=== PATIENT | female | born 1970 | race Caucasian/White ===

== ENCOUNTER 2024-11-25 14:07 | Outpatient (AMB) | payer MEDICARE, MEDICAID, SELFPAY ==
--- NOTE | 2024-11-25 13:11 | A.OFFVIS_ITS ---
Vital Signs 11/25/24 14:27 Height 5 ft 6 in Weight 182 lb BMI 29.4 BP 122/64 Blood Pressure Location Rt brachial Pulse 93 Pulse Source Pulse Oximeter Pulse Oximetry (%) 98 Oxygen Delivery Method Room Air Intake Visit Reasons: Cough Record Center Coordinator Required: No Ceramist: Ceramist offered & declined Accompanied by: Self / Same As Patient Allergies acetaminophen (From Percocet) Allergy (Unknown, Verified 11/25/24 14:38) rash clarithromycin (From Biaxin) Allergy (Unknown, Verified 11/25/24 14:38) rash Iodinated Contrast Media (IV Contrast Dye) Allergy (Unknown, Verified 11/25/24 14:38) itching, rash oxycodone (From Percocet) Allergy (Unknown, Verified 11/25/24 14:38) rash Sulfa (Sulfonamide Antibiotics) Allergy (Unknown, Verified 11/25/24 14:38) Rash latex Allergy (Verified 11/25/24 14:38) itching/rash Medication List - Last Reconciled 11/25/24 by Linda Villalta LPN acyclovir 800 mg PO DAILY PRN albuterol sulfate 90 mcg/actuation (Ventolin HFA) 1 puff inhalation Q6H PRN amlodipine 5 mg PO DAILY bupropion HCl XL (Wellbutrin XL) 300 mg PO QAM cetirizine (Zyrtec) 10 mg PO DAILY PRN fluticasone propionate 50 mcg/actuation (Flonase Allergy Relief) 2 sprays intranasal DAILY hydrochlorothiazide 12.5 mg PO DAILY levothyroxine (Synthroid) 150 mcg PO DAILY methylphenidate HCl (Ritalin) 10 mg PO TID mometasone-formoterol 100-5 mcg/actuation (Dulera) 2 puffs inhalation BID trazodone 150 mg PO BEDTIME PRN HPI HPI Cough: Details: Haritha is a pleasant 54 year old female, never smoker, with underlying asthma, anemia, allergic rhinitis, chronic urticaria GERD and HTN. She was referred by PCP for pulmonary evaluation. The patient has a history of asthma, since childhood, never requiring intubation, previously managed with Symbicort, now switched to Dulera since September due to insurance coverage changes. She reports using Dulera twice daily but experiences nocturnal dyspnea approximately three times a week, indicating suboptimal asthma control, requiring albuterol MDI frequently. In September, the patient experienced sinusitis, which exacerbated her chronic bronchitis and asthma. She was treated with two courses of antibiotics due to initial treatment failure, but did not receive prednisone. The patient reports long-standing history of chronic bronchitis, with recurrent episodes noted during winter and spring. She reports exacerbations in May/June, and again in September/October, often triggered by seasonal changes and allergies. CXR 10/2024 unremarkable The patient also has chronic urticaria, requiring apheresis treatments in the past, though not in the last two and a half years. Previously on Xolair however d/c due to scheduling conflicts. She has a family history of respiratory issues, including her daughter with mitochondrial disease and granddaughters with similar conditions. She denies any occupational exposures. [facility] Social History (Updated 11/25/24 @ 14:29 by Linda Villalta LPN) Patient Tobacco Use Status: Never used Tobacco Review of Systems Const Denies chills, Denies excessive sweating, Denies fever(s), Denies headache(s) and Denies night sweats ENT Reports Normal hearing present, Denies headache(s), Denies nasal discharge and Denies sore throat Card Denies chest pain, Denies chest pain at rest, Denies chest pain with activity, Denies claudication, Denies leg edema, Reports dyspnea on exertion, Denies orthopnea and Denies paroxysmal nocturnal dyspnea Resp Denies change in phlegm color, Denies chest congestion, Reports cough, Denies hemoptysis, Denies excessive phlegm production, Denies pain on inspiration, Denies pain with cough, Reports dyspnea on exertion and Denies stridor Musc Denies myalgias Neuro Reports Normal hearing present and Denies headache(s) Endo Denies excessive sweating Jose/Lymph Denies lymphadenopathy Aller/Immun Denies seasonal rhinorrhea Physical Exam Vital Signs: Last Vital Signs Pulse 93 11/25/24 14:27 BP 122/64 11/25/24 14:27 Pulse Ox 98 11/25/24 14:27 Oxygen Delivery Method Room Air 11/25/24 14:27 BMI result Body Mass Index 29.4 Const General: cooperative, healthy appearing, comfortable, no acute distress, well developed and alert Orientation/consciousness: patient oriented x3 Limitations: no limitations HEENT Head: Yes normal to inspection, Yes normocephalic and Yes atraumatic Ears: hearing grossly normal bilaterally and external ears normal Eyes General: appearance normal, both eyes and all related structures Eyelids: Yes eyelids normal Sclerae: sclerae normal EOM: EOMs intact bilaterally Neck Neck: Yes normal visual inspection and Yes no lymphadenopathy Lymphatic: no lymphadenopathy noted Chest Chest palpation & inspection: normal inspection of the chest Resp Effort & Inspection: normal respiratory effort, able to speak in complete sentences, no audible wheezes, no cough, no stridor, not tachypneic, no tripod positioning and no use of accessory muscles Auscultation: diminished lung sounds Cardio Jugular venous distension: no JVD Rate: regular rate Rhythm: regular rhythm Skin Other: warm, dry General skin exam: no rashes or lesions noted Neuro General: patient oriented x3 Cranial nerves: Yes Normal hearing present Cognition (Neuro): normal cognition Gait exam (Neuro): Normal gait present Extrem General: Yes normal to inspection, Yes capillary refill normal, Yes no clubbing, cyanosis or edema and Yes no pedal edema Psych Appearance: grossly normal and well kempt Speech and movement: Normal speech and movement present and Clear speech present Affect: normal affect Attitude: cooperative Thought process: Normal thought process present Thought content: Normal thought content present Insight: Good insight present (Psych) Judgement: Good judgement present (Psych) Assessment & Plan Assessment & Plan (1) Asthma: Code(s): J45.909 - Unspecified asthma, uncomplicated Category: Medical (2) Allergic rhinitis: Code(s): J30.9 - Allergic rhinitis, unspecified Category: Medical Plan Haritha presents for pulmonary evaluation with known h/o asthma. At this time patient with suboptimal control of symptoms on current regimen, will increase Dulera to 200 mcg. Refills for albuterol inhaler will be provided, and the patient is instructed to monitor usage frequency. A full pulmonary function test will be scheduled to assess the severity of asthma and guide further management. The patient is advised to avoid triggers such as bleach and ensure proper ventilation when cleaning. All questions were answered and patient is in agreement of plan. Will follow up in 8 to 10 weeks to evaluate the effectiveness of the current treatment regimen and review pulmonary function test results, or sooner if needed. Orders: Orders PFT pulmonary function test Today J45.909 - Unspecified asthma, uncomplicated Medications: New mometasone-formoterol 200-5 mcg/actuation (Dulera) 2 puffs inhalation BID 1 ea 6RF albuterol sulfate 90 mcg/actuation 2 puffs inhalation Q4-6H PRN 1 ea 3RF shortness of breath or wheezing Coding Level of Care Code New Pt Level 3 (44043) Diagnoses Asthma J45.909 Allergic rhinitis J30.9
--- OUTSIDE RECORDS SUMMARY | 2024-11-25 14:12 | XMS_ITS | Clinical Summary ---
Author Organization [facility] [address] [facility] Address [address] [place] [address] Phone Care Team Providers Care Owner Operator Name Role Phone bE Brady MD Primary Care Provider [phone] Allergies Active Allergy Reactions Criticality Noted Date Comments Adhesive Tape-Silicones 05/30/2024 Latex Hives,Swelling High 11/05/2005 Other Hives,Swelling High 09/23/2006 Develops hives where bee stings Oxycodone-Acetaminophen Hives 11/05/2005 Peanut Cough 09/19/2020 Sulfacetamide Sodium Hives 11/05/2005 Sulfamethoxazole 05/30/2024 Medications bupropion HCl (WELLBUTRIN ORAL) Take by mouth. Activ e albuterol HFA (PROAIR HFA ; PROVENTIL HFA ; VENTOLIN HFA) 90 mcg/actuation inhaler Inhale 2 puffs by mouth every 4 (four) hours if needed for wheezing or shortness of breath. 1 Active cetirizine (ZyrTEC) 10 mg tablet Take 1 tablet (10 mg total) by mouth 1 (one) time each day. 0 Active doxepin (SINEquan) 10 mg capsule Take 2 capsules (20 mg total) by mouth at bedtime. 1 Active cimetidine (TAGAMET) 300 mg tablet Take 1 tablet (300 mg total) by mouth 2 (two) times a day. 1 Active EPINEPHrine (EpiPen 2-Vince) 0.3 mg/0.3 mL injection Inject 0.3 mL (0.3 mg total) as directed 1 (one) time. 1 Active estradioL (ESTRACE) 2 mg tablet Take 1 tablet (2 mg total) by mouth 1 (one) time each day. 1 Active fluticasone propionate (FLONASE) 50 mcg/actuation nasal spray Administer 2 sprays into affected nostril(s) 1 (one) time each day. 1 Active fluticasone HFA (Flovent HFA) 110 mcg/actuation inhaler Inhale 2 puffs by mouth 2 (two) times a day. 1 Active levothyroxine (SYNTHROID, LEVOTHROID) 75 mcg tablet Take 1 tablet (75 mcg total) by mouth 1 (one) time each day. Active methylphenidat e HCl (RITALIN ORAL) Take by mouth. Activ e OMEPRAZOLE ORAL Take by mouth. Activ e tretinoin (RETIN-A) 0.025 % cream Apply topically. Sig: Apply pea size amount QHS 0 Active triamcinolone (KENALOG) 0.1 % cream Apply topically 1 (one) time each day. Sig: The patient is to mix 80 g of triamcinolone cream with a jar of CeraVe cream and apply this after her bath, not to be applied to face. 9 Active methylphenidat e (RITALIN) 10 mg tablet TAKE 1 TABLET AT 8 AM AND 12 NOON AND 4 PM FOR ADHD 4 Active levothyroxine (SYNTHROID, LEVOTHROID) 125 mcg tablet Take 1 tablet (125 mcg total) by mouth 1 (one) time each day. 4 Active doxepin (SINEquan) 25 mg capsule TAKE 1 CAPSULE BY MOUTH EVERY NIGHT AT BEDTIME NEEDED FOR ITCHING OR HIVES 4 Active traZODone (DESYREL) 100 mg tablet Take 2 tablets (200 mg total) by mouth. at bedtime 4 Active traMADoL (ULTRAM) 50 mg tablet Take by mouth every 6 (six) hours if needed. for pain 4 Active sucralfate (CARAFATE) 1 gram tablet Take 1 tablet (1 g total) by mouth. 4 Active sertraline (ZOLOFT) 100 mg tablet Take 2 tablets (200 mg total) by mouth 1 (one) time each day. 4 Active predniSONE (DELTASONE) 20 mg tablet 4 Active ondansetron (ZOFRAN) 4 mg tablet Take 1 tablet (4 mg total) by mouth every 8 (eight) hours if needed. for nausea and vomiting 4 Active mupirocin (BACTROBAN) 2 % ointment Apply 1 Application topically 2 (two) times a day. 1 Active morphine (MSIR) 15 mg tablet TAKE 1 TABLET BY MOUTH EVERY 3 HOURS NEEDED FOR SEVERE PAIN 4 Active montelukast (SINGULAIR) 10 mg tablet Take 1 tablet (10 mg total) by mouth. at bedtime 4 Active Dulera 100-5 mcg/actuation inhaler Inhale 2 puffs by mouth 2 (two) times a day. 4 Active mirtazapine (REMERON) 45 mg tablet TAKE 1/2 TABLET BY MOUTH DAILY AT BEDTIME 4 Active minoxidiL (LONITEN) 2.5 mg tablet Take 0.5 tablets (1.25 mg total) by mouth 1 (one) time each day. 4 Active meloxicam (MOBIC) 15 mg tablet TAKE 1 TABLET BY MOUTH DAILY AFTER MEALS 4 Active Linzess 290 mcg capsule Take 1 capsule (290 mcg total) by mouth 1 (one) time each day. 4 Active hydrOXYzine HCL (ATARAX) 25 mg tablet TAKE 1 TABLET BY MOUTH THREE TIMES DAILY FOR 3 DAYS NEEDED 4 Active hydrOXYzine HCL (ATARAX) 10 mg tablet TAKE 1 TABLET BY MOUTH FOUR TIMES A DAY NEEDED FOR ITCHING 4 Active hydrocortisone valerate (WEST-MARITZA) 0.2 % ointment Apply bid x 10-14 days 9 Active HYDROcodone-ac etaminophen (NORCO) 5-325 mg per tablet TAKE 1 TABLET BY MOUTH EVERY 6 HOURS FOR 3 DAYS NEEDED 4 Active hydroCHLOROthi azide 12.5 mg tablet 4 Active acyclovir (ZOVIRAX) 800 mg tablet Active acetaminophen (TYLENOL) 500 mg tablet TAKE 2 TABLETS BY MOUTH EVERY 8 HOURS DIRECTED 4 Active Encounters Date Type Department Care Team Description 09/20/2024 9:49 AM EDT - 09/20/2024 11:59 PM EDT [facility] [address] [address] Encounter for screening mammogram for malignant neoplasm of breast Discharge Disposition: Home or Self Care from Last 3 Months Surgical History Surgery Date Site/Laterality Comments TONSILLECTOMY PROCEDURE: MN TONSILLECTOMY PRIMARY/SECONDARY <AGE 12 PARTIAL HYSTERECTOMY 05/18/1998 - 05/17/1999 PROCEDURE: MN SUPRACERVICAL ABDL HYSTER W/WO RMVL TUBE OVARY; COMMENT: with colpopexy, no BSO APPENDECTOMY PROCEDURE: HISTORICAL APPENDECTOMY VAGINAL DELIVERY PROCEDURE: MN VAGINAL DELIVERY ONLY; COMMENT: x2 TUBAL LIGATION PROCEDURE: HISTORICAL TUBAL LIGATION TONSILLECTOMY ADENOIDECTOMY, BILATERAL MYRINGOTOMY AND TUBES PROCEDURE: MN TONSILLECTOMY & ADENOIDECTOMY <AGE 12 APPENDECTOMY PROCEDURE: MN APPENDECTOMY OTHER SURGICAL HISTORY 05/18/2010 PROCEDURE: ---- OTHER ----; COMMENT: Bladder susspension, OTHER SURGICAL HISTORY 04/17/2013 PROCEDURE: ---- OTHER ----; COMMENT: Spinal fusion ,L4/5/3 OTHER SURGICAL HISTORY PROCEDURE: HISTORY OTHER; COMMENT: foot surgery Medical History Medical History Date Comments Unspecified disorder of thyroid DX:Unspecified disorder of thyroid Anemia, unspecified DX:Anemia, u nspecified Unspecified asthma(493.90) DX:Un specified asthma(493.90) Other specified personal his tory presenting hazards to health(V15.89) DX:Other specifie d personal history presenting hazards to health(V15.89) Family History Medical History Relation Name Comments Sleep apnea Daughter 1 Diabetes Father Hypertension Father Heart failure Maternal Grandfather Diabetes Maternal Grandmother Heart failure Maternal Grandmother Arthritis Mother Stroke Mother x2 Prostate cancer Paternal Grandfather Sleep apnea Sister 1 Thyroid disease Sister 2 Thyroid disease Son 1 Relation Name Status Comments Brother 1 Alive Brother 2 Alive Brother 3 Alive Daughter 1 Daughter 2 Alive Mitochondrial d isorder Father Alive Maternal Grandfather Maternal Grandmother Mother Alive Paternal Grandfather Paternal Grandmother Sister 1 Sister 2 Sister 3 Alive Sister 4 Alive Son 1 Son 2 Alive Thyroid disorde r Social History Tobacco Use Types Packs/Day Years Used Date Smoking Tobacco: Never Smokeless Tobacco: Never Alcohol Use Standard Drinks/Week Comments No 0 (1 standard drink = 0.6 oz pur e alcohol) Comments No Sex and Gender Information Value Date Recorded Sex Assigned at Female 07/18/2024 9:46 AM EST Legal Sex Female 5:45 PM EST Gender Identity Female 07/18/2024 9:46 AM EST Sexual Orientation Not on file Obstetrics History Para Term AB IAB SAB Ectopic Multiple Livin g Live Births 3 2 2 1 1 2 2 Date Outcome GA Total Labor Labor/2nd/3rd Weight Sex Type Anes PTL Marie A1 A5 Name Clin 985 SAB SAB Deceas ed 988 Term 40w 0d 2722 g (96 oz) M Vag-S pont Living [place] Delivery Location:[facility] Comments:Thyroid 995 Term 40w 0d 2722 g (96 oz) F Vag-S pont Living [facility] Delivery Location:[facility] Comments:Mitochondrial dx Last Filed Vital Signs Vital Sign Reading Time Taken Comments Blood Pressure 138/86 05/30/2024 10:41 AM EST Pulse 79 05/30/2024 10:41 AM EST Temperature - - Respiratory Rate - - Oxygen Saturation - - Inhaled Oxygen Concentration - - Weight 85.3 kg (188 lb) 09/20/2024 10:00 AM EDT Height 167.6 cm (5' 6 ) 09/20/2024 10:00 AM EDT Body Mass Index 30.34 09/20/2024 10:00 AM EDT Plan of Treatment Health Maintenance Due Date Last Done Comments Hepatitis B Vaccines (1 of 3 - 19+ 3-dose series) 1989 Pneumococcal Vaccine: 50+ Years (1 of 2 - PCV) 1989 Pneumococcal Vaccine: Pediatrics (0 to 5 Years) and At-Risk Patients (6 to 49 Years) (1 of 2 - PCV) 1989 Zoster Vaccines (1 of 2) 2020 Cholesterol Screening (Lipid Panel) 04/19/2022 Colorectal Cancer Screening: Colonoscopy 04/19/2022 Depression Screening 04/19/2022 Medicare Annual Wellness Visit 04/19/2022 Social Influencers of Health Screening 04/19/2022 COVID-19 Vaccine (8 - Pfizer risk season) 2024 02/05/2024, 02/11/2023, 03/20/2022, Additional history exists Influenza Vaccine (#1) 2025 Breast Cancer Screening 09/20/2026 09/20/2024, 08/09 DTaP,Tdap,and Td Vaccines (4 - Td or Tdap) 02/19/2034 02/20/2024, 03/12/2018, 05/11/2017 Hepatitis A Vaccines Aged Out 11/02/2006 No long er eligible based on patient's age to complete this topic Hepatitis C Screening Completed 06/30/2016 HIV Screening Completed 07/01/2016 HIB Vaccines Aged Out No longer eligi ble based on patient's age to complete this topic HPV Vaccines Aged Out No longer eligi ble based on patient's age to complete this topic IPV Vaccines Aged Out No longer eligi ble based on patient's age to complete this topic MMR Vaccines Aged Out No longer eligi ble based on patient's age to complete this topic Meningococcal ACWY Vaccine Aged Out N o longer eligible based on patient's age to complete this topic Meningococcal B Vaccine Aged Out No l onger eligible based on patient's age to complete this topic RSV Immunization Patients Under 20 months Aged Out No longer eligible based on patient's age to complete this topic Varicella Vaccines Aged Out No longer eligible based on patient's age to complete this topic Procedures Procedure Name Priority Date/Time Associated Diagnosis Comments MG MAMMO DIGITAL SCREENING W LUCIO BILAT Routine 09/20/2024 10:09 AM EDT Encounter for screening mammogram for malignant neoplasm of breast HIV SCREENING Routine 07/01/2016 HEPATITIS C SCREENING Routine 06/30/2016 from Last 3 Months or Most Recently Relevant to Health Maintenance Results * MG Mammo Digital Screening w Lucio bilat (09/20/2024 10:09 AM EDT) Anatomical Region Laterality Modality Breast Bilateral Mammography 09/20/2024 10:1 4 AM EDT Impressions 09/20/2024 10:18 AM EDT No mammographic evidence of malignancy. A negative mammogram in the presence of a clinically suspicious palpable abnormality does not preclude the possibility of malignancy or alter the indications for biopsy. PQRI CPT II 3342F Code 35204, 61471 PQRI 225 CPT II 7025F TISSUE DENSITY: There are scattered areas of fibroglandular density. (BI-RADS category B) IMPRESSION: Benign. BI-RADS CATEGORY: 2 - BENIGN RECOMMENDATION: Screening bilateral mammogram is recommended in 1 year. Mammo Location: [facility], [address] [place] [address] -------- FINAL REPORT -------- Dictated By: Eb Dunham Dictated Date: 09/20/2024 10:14 ET Assigned Physician: Eb Dunham Reviewed and Electronically Signed By: Eb Dunham Signed Date: 09/20/2024 10:18 ET Workstation ID: [id number] Transcribed By: Self Edit Transcribed Date: 09/20/2024 10:14 ET Narrative 09/20/2024 10:18 AM EDT CLINICAL: The patient is a 54 years Female presenting for routine screening mammography. COMPARISON: 08/09/2020 and 06/26/2017. TECHNIQUE: Full-field digital mammography of the breasts bilaterally consisting of tomosynthesis in MLO and CC projection is performed in the [employer] 2000-D unit. Computer aided detection utilizing the iCAD system was utilized. FINDINGS: The breasts are again seen to be composed of a combination of fatty and fibroglandular elements. Bilateral vascular calcifications are again noted. There is no suspicious cluster of microcalcifications, mass, or area of architectural distortion. There is no skin thickening or nipple retraction. Procedure Note Eb Dunham MD - 09/20/2024 CLINICAL: The patient is a 54 years Female presenting for routinescreening mammography. COMPARISON: 08/09/2020 and 06/26/2017. TECHNIQUE: Full-field digital mammography of the breasts bilaterallyconsisting of tomosynthesis in MLO and CC projection is performed in the[employer]od[employer] 2000-D unit. Computer aided detection utilizing the kSARIAystem was utilized. FINDINGS: The breasts are again seen to be composed of a combination offatty and fibroglandular elements. Bilateral vascular calcifications areagain noted. There is no suspicious cluster of microcalcifications, mass,or area of architectural distortion. There is no skin thickening or nippleretraction. IMPRESSION: No mammographic evidence of malignancy. A negative mammogram in the presence of a clinically suspicious palpableabnormality does not preclude the possibility of malignancy or alter theindications for biopsy. PQRI CPT II 3342F Code 59885, 63545 PQRI 225 CPT II 7025F TISSUE DENSITY: There are scattered areas of fibroglandular density.(BI-RADS category B) IMPRESSION: Benign. BI-RADS CATEGORY: 2 - BENIGN RECOMMENDATION: Screening bilateral mammogram is recommended in 1 year. Mammo Location: [facility], [address] [place] [address] -------- FINAL REPORT -------- Dictated By: Eb Dunham Dictated Date: 09/20/2024 10:14 ET Assigned Physician: Eb Dunham Reviewed and Electronically Signed By: Eb Dunham Signed Date: 09/20/2024 10:18 ET Workstation ID: [id number] Transcribed By: Self Edit Transcribed Date: 09/20/2024 10:14 ET [facility] IMG BI PROCEDURES Final Resul t * HIV Screening (07/01/2016) HIV Screening abstracted Historical Provider HEALTH MAINTENANCE Final Result * Hepatitis C Screening (06/30/2016) Hepatitis C Screening abstracted Historical Provider HEALTH MAINTENANCE Final Result from Last 3 Months or Most Recently Relevant to [place] [address] MEDICAID - [place] MEDICARE Care Teams Owner Operator Relationship Specialty Start Date End Date Eb Brady MD [address] [address] PCP - General Internal Medicine 06/30/24
--- OUTSIDE RECORDS SUMMARY | 2024-11-25 14:12 | XMS_ITS | Patient Health Record ---
[facility] Address [address] [place] [address] Care Team Providers Care Hotel Services Sales Representative Name Role Phone Eb Brady MD Primary Care Provider Franco Bass Unavailable [phone] Allergies Allergen (clinical drug ingredient) Drug/Non Drug Allergy documented on EMR Reaction Allergy Type Onset Date Status sulfa Unknown Drug Allergy Active Latex Unknown Drug Allergy Active tylenol with codeine hives Drug Allergy Active Reason For Referral No Information Medications Medication SIG (Take, Route, Frequency, Duration) Notes Start Date End Date Status Linzess 290 MCG Oral; Duration: 90 Not-Taking Dicyclomine HCl 10 MG Oral; Duration: 90 Not-Taking buPROPion HCl ER (XL) 300 MG Oral; Duration: 30 Active Methylphenidate HCl 10 MG (Schedule II D rug) Oral; Duration: 30 Active Gabapentin 100 MG Oral; Duration: 30 Active Cimetidine 300 MG Oral; Duration: 30 Active Acyclovir 800 MG Oral; Duration: 30 Active Ciclopirox Olamine 0.77 % External; Dura tion: 30 Not-Taking Spironolactone 100 MG Oral; Duration: 30 Active Diclofenac Sodium 75 MG Oral; Duration: 90 Unknown Benadryl Active Desoximetasone 0.05 % External; Duration : 25 Not-Taking Levothyroxine Sodium 125 MCG Oral; Duration: 90 Active Doxepin HCl 10 MG Oral; Duration: 30 Not-Taking prednisoLONE Acetate 1 % Ophthalmic; Dur ation: 30 Not-Taking HYDROcodone-Acetaminophen 5-325 MG (Schedule II Drug) Oral; Duration: 3 Not-Taking Ciloxan 0.3 % Ophthalmic; Duration : 7 Not-Taking Ciprofloxacin HCl 500 MG Oral; Duration: 5 Not-Taking Levocetirizine Dihydrochloride 5 MG Oral; Duration: 30 N ot-Taking Triamcinolone Acetonide 0.1 % External; Duration: 30 Not-Taking Nitrofurantoin Monohyd Macro 100 MG Oral; Duration: 5 Not-Taking clonazePAM 0.5 MG (Schedule IV Drug) Oral; Duration: 15 Not-Taking Ofloxacin 0.3 % Ophthalmic; Duration : 7 Not-Taking Clindamycin HCl 300 MG Oral; Duration: 10 Not-Taking Tagamet HB Active traZODone HCl 150 MG Oral; Duration: 30 Not-Taking ZyrTEC Active Social History Tobacco Use: Social History Observation Description Date Details (start date - stop date) Never Smoker NA - NA Tobacco Use/Smoking Question Answer Notes Are you a: nonsmoker Additional Findings: Tobacco Non-User Current no n-smoker Alcohol Screen Question Answer Notes Did you have a drink containing alcohol in the p ast year? No Points 0 Interpretation Negative Tobacco use other than smoking: Question Answer Notes Are you an other tobacco user? No Problems Problem Type SNOMED Code ICD Code Onset Dates Problem Status W/U Status Risk Notes Problem Acquired hammer toe of right foot (6012433246130 105) Other hammer toe(s) (acquired), right foot (M20.41) Active confirmed Problem Acquired hammer toe of left foot (2490091796297 103) Other hammer toe(s) (acquired), left foot (M20.42) Active confirmed Plan Of Treatment Pending Test Test Name Order Date X ray : Foot, left 3V 10/14/2016 X ray : Foot, right 3V 10/14/2016 [id number] Plate 10/14/2016 81235- Debride <25 sq cm 10/28/2016 Insurance Providers Payer Name Payer Address Payer Phone Subscriber Number Group Number Insured Name Patient Relationship to Insured Coverage Start Date Coverage End Date Medicare National Govt Sv[employer] [address] [place] [address] [id number] Elda Zarate Self - patient is the insured 0 Medical (General) History Medical History History ICD Code Back,Hip,and Knee pain Headaches Migraines Neuropathy Reflux ( GERD) Thyroid disorder Joint implants/screws Surgical History Surgery Date(Month/Year) Thyroid Surgery 1998 back surgery 2014 partial hysterectomy
[2024-11-25 14:27] VITALS: BP 122/64; PULSE 93; O2SAT 98; BMI 29.4
== END 2024-11-25 14:54 | disposition home or self-care (01) ==
LOC: HO.HPSW 14:07
PROVIDERS: PCP Internal Medicine; Referring Provider Nurse Practitioner; Visit Provider Nurse Practitioner Family
DX: J45.909 Unspecified asthma, uncomplicated (principal); J30.9 Allergic rhinitis, unspecified
CPT/HCPCS: 99203

== ENCOUNTER → 2024-11-25 14:07 | Outpatient (BNVA) | payer MEDICARE, MEDICAID, SELFPAY | PROVIDERS: PCP Internal Medicine; Referring Provider Nurse Practitioner; Visit Provider Nurse Practitioner Family | DX: J45.909 Unspecified asthma, uncomplicated (principal); J42 Unspecified chronic bronchitis; Z79.51 Long term (current) use of inhaled steroids | CPT/HCPCS: 99202 ==

== ENCOUNTER 2025-01-27 10:09 | Outpatient (AMB) | payer MEDICARE, MEDICAID, SELFPAY ==
--- NOTE | 2025-01-27 10:20 | MHC.OFFVIS ---
Vital Signs 01/27/25 10:21 Height 5 ft 6 in Weight 189 lb 2 oz BMI 30.5 BP 110/66 Blood Pressure Location Rt brachial Position Sitting Pulse 78 Pulse Source Pulse Oximeter Pulse Oximetry (%) 98 Oxygen Delivery Method Room Air Intake Visit Reasons: Cough Allergies acetaminophen (From Percocet) Allergy (Unknown, Verified 01/27/25 10:23) rash clarithromycin (From Biaxin) Allergy (Unknown, Verified 01/27/25 10:23) rash Iodinated Contrast Media (IV Contrast Dye) Allergy (Unknown, Verified 01/27/25 10:23) itching, rash oxycodone (From Percocet) Allergy (Unknown, Verified 01/27/25 10:23) rash Sulfa (Sulfonamide Antibiotics) Allergy (Unknown, Verified 01/27/25 10:23) Rash latex Allergy (Verified 01/27/25 10:23) itching/rash HPI HPI Cough: Details: Haritha is a pleasant 54 year old female, never smoker, with underlying asthma, anemia, allergic rhinitis, chronic urticaria previously on Xolair, GERD and HTN. Previously managed with Symbicort, now switched to Dulera since September due to insurance coverage changes.At the last visit Dulera was increased and she reports overall improvements in dyspnea. She denies chest tightness or wheezing. Of note, patient does report worsening sinus pressure/pain with associated green drainage resulting in cough. She denies chest congestion, fever or chills. She denies any visits to urgent care or hospitalizations related to respiratory distress since the last visit. She has upcoming PFT scheduled later this month. [facility] Social History Patient Tobacco Use Status: Never used Tobacco Review of Systems Const Denies chills, Denies excessive sweating, Denies fever(s), Denies headache(s) and Denies night sweats ENT Reports Normal hearing present, Denies headache(s), Reports nasal congestion, Reports nasal discharge, Reports sinus pain and Reports sinus pressure Card Denies chest pain, Denies chest pain at rest, Denies chest pain with activity, Denies claudication, Denies leg edema, Reports dyspnea on exertion, Denies orthopnea and Denies paroxysmal nocturnal dyspnea Resp Denies change in phlegm color, Denies chest congestion, Reports cough, Denies hemoptysis, Denies excessive phlegm production, Denies pain on inspiration, Denies pain with cough, Reports dyspnea on exertion, Denies stridor and Denies wheezing Musc Denies myalgias Neuro Reports Normal hearing present and Denies headache(s) Endo Denies excessive sweating Jose/Lymph Denies lymphadenopathy Aller/Immun Denies seasonal rhinorrhea and Denies wheezing Physical Exam Vital Signs: Last Vital Signs Pulse 78 01/27/25 10:21 BP 110/66 01/27/25 10:21 Pulse Ox 98 01/27/25 10:21 Oxygen Delivery Method Room Air 01/27/25 10:21 BMI result Body Mass Index 30.5 Const General: cooperative, healthy appearing, comfortable, no acute distress, well developed and alert Orientation/consciousness: patient oriented x3 Limitations: no limitations HEENT Head: Yes normal to inspection, Yes normocephalic and Yes atraumatic Ears: hearing grossly normal bilaterally and external ears normal Eyes General: appearance normal, both eyes and all related structures Eyelids: Yes eyelids normal Sclerae: sclerae normal EOM: EOMs intact bilaterally Neck Neck: Yes normal visual inspection and Yes no lymphadenopathy Lymphatic: no lymphadenopathy noted Chest Chest palpation & inspection: normal inspection of the chest Resp Effort & Inspection: normal respiratory effort, able to speak in complete sentences, no audible wheezes, no cough, no stridor, not tachypneic, no tripod positioning and no use of accessory muscles Auscultation: clear to auscultation bilaterally Cardio Jugular venous distension: no JVD Rate: regular rate Rhythm: regular rhythm Skin Other: warm, dry General skin exam: no rashes or lesions noted Neuro General: patient oriented x3 Cranial nerves: Yes Normal hearing present Cognition (Neuro): normal cognition Gait exam (Neuro): Normal gait present Extrem General: Yes normal to inspection, Yes capillary refill normal, Yes no clubbing, cyanosis or edema and Yes no pedal edema Psych Appearance: grossly normal and well kempt Speech and movement: Normal speech and movement present and Clear speech present Affect: normal affect Attitude: cooperative Thought process: Normal thought process present Thought content: Normal thought content present Insight: Good insight present (Psych) Judgement: Good judgement present (Psych) Assessment & Plan Assessment & Plan (1) Asthma: Code(s): J45.909 - Unspecified asthma, uncomplicated Category: Medical (2) Allergic rhinitis: Code(s): J30.9 - Allergic rhinitis, unspecified Category: Medical Plan Will treat for sinusitis with doxycycline, unable to tolerate Augmentin. She is also requesting fluconazole as she is prone to yeast infections with abx use and has tolerated previously. Advised patient to continue Dulera 200 mcg and albuterol MDI. She is aware to call if symptoms change. She has upcoming PFT scheduled later this month and will review results at next visit. All questions were answered and patient is in agreement of plan. Will follow up in 8 to 10 weeks or sooner if needed. Medications: New doxycycline hyclate 100 mg PO BID 14 caps 0RF fluconazole 150 mg PO Q3D 2 tabs 0RF 2 doses Coding Level of Care Code Est Pt Level 4 (19485) Diagnoses Asthma J45.909 Allergic rhinitis J30.9
[2025-01-27 10:21] VITALS: BP 110/66; PULSE 78; O2SAT 98; BMI 30.5
--- OUTSIDE RECORDS SUMMARY | 2025-01-27 11:35 | XMS_ITS | Patient Health Record ---
[facility] Address [address] [place] [address] Care Team Providers Care Microbiology Lab Technician Name Role Phone Eb Brady MD Primary Care Provider Franco Bass Unavailable [phone] Allergies Allergen (clinical drug ingredient) Drug/Non Drug [...] Problem Acquired hammer toe of right foot ([id number] 105) Other hammer toe(s) (acquired), right foot (M20.41) Active confirmed Problem Acquired hammer toe of left foot (9171084344324 103) Other hammer toe(s) (acquired), left foot (M20.42) Active confirmed Plan Of Treatment Pending Test Test Name Order Date X ray : Foot, left 3V 10/14/2016 X ray : Foot, right 3V 10/14/2016 [id number] Plate 10/14/2016 50522- Debride <25 sq cm 10/28/2016 Insurance Providers Payer Name Payer Address Payer Phone Subscriber Number Group Number Insured Name Patient Relationship to Insured Coverage Start Date Coverage End Date Medicare National Govt Svcs Inc [address] [place] [address] [phone] [id number] Elda Zarate Self - patient is the insured 0 Medical (General) History Medical History History ICD Code Back,Hip,and Knee pain Headaches Migraines Neuropathy Reflux ( GERD) Thyroid disorder Joint implants/screws Surgical History Surgery Date(Month/Year) Thyroid Surgery 1998 back surgery 2014 partial hysterectomy
--- OUTSIDE RECORDS SUMMARY | 2025-01-27 11:35 | XMS_ITS | Clinical Summary ---
Author Organization [facility] [address] [facility] Address [address] [place] [address] Phone Care Team Providers Care J2Ee Software Engineer Name Role Phone Eb Brady MD Primary Care Provider [phone] Allergies Active Allergy Reactions Criticality Noted Date [...] MOUTH EVERY 8 HOURS DIRECTED 4 Active Surgical History Surgery Date Site/Laterality Comments TONSILLECTOMY PROCEDURE: [place] TONSILLECTOMY PRIMARY/SECONDARY <AGE 12 PARTIAL HYSTERECTOMY 05/18/1998 - 05/17/1999 PROCEDURE: [place] SUPRACERVICAL ABDL HYSTER W/WO RMVL TUBE OVARY; COMMENT: with colpopexy, no BSO APPENDECTOMY PROCEDURE: HISTORICAL APPENDECTOMY VAGINAL DELIVERY PROCEDURE: [place] VAGINAL DELIVERY ONLY; COMMENT: x2 TUBAL LIGATION PROCEDURE: HISTORICAL TUBAL LIGATION TONSILLECTOMY ADENOIDECTOMY, BILATERAL MYRINGOTOMY AND TUBES PROCEDURE: [place] TONSILLECTOMY & ADENOIDECTOMY <AGE 12 APPENDECTOMY PROCEDURE: [place] APPENDECTOMY OTHER SURGICAL HISTORY 05/18/2010 PROCEDURE: ---- [...] Sexual Orientation Not on file Obstetrics History * This document contains information received from the source organization and may not represent a complete record from that organization. Para Term AB IAB SAB Ectopic Multiple Livin g Live Births 3 2 2 2 2 Date Outcome GA Total Labor Labor/2nd/3rd Weight Sex Type Anes PTL Marie A1 A5 Name Clin 985 988 Term 40w 0d 2722 g (96 oz) M Vag-S pont Living [place] Delivery Location:[facility] Comments:Thyroid 995 Term 40w 0d 2722 g (96 oz) F Vag-S pont Living [facility] Delivery Location:[facility] Comments:Mitochondrial dx Last Filed Vital Signs [...] 09/20/2024 10:00 AM EDT Plan of Treatment Upcoming Encounters Date Type Department Care Team (Late st Contact Info) Description 03/16/2025 11:00 AM EDT Office Visit Gastroenterology - [address] [place] [id number] Aamir Woodruff MD [address] [place] [phone] Health Maintenance Due Date Last Done Comments Hepatitis B Vaccines (1 of 3 - 19+ 3-dose series) 1989 Pneumococcal Vaccine: 50+ Years (1 of 2 - PCV) 1989 Zoster Vaccines (1 of 2) 2020 Cholesterol Screening (Lipid Panel) 04/19/2022 Colorectal Cancer Screening: Colonoscopy 04/19/2022 Medicare Annual Wellness Visit 04/19/2022 Social Influencers of Health Screening 04/19/2022 Depression Screening 05/18/2024 COVID-19 Vaccine (8 - Pfizer risk season) 2025 02/05/2024, 02/11/2023, 03/20/2022, Additional history exists Influenza [...] for biopsy. PQRI CPT II 3342F Code 84488, 79735 PQRI 225 CPT II 7025F TISSUE DENSITY: There are scattered areas of fibroglandular density. (BI-RADS category B) IMPRESSION: Benign. BI-RADS CATEGORY: 2 - BENIGN RECOMMENDATION: Screening bilateral mammogram is recommended in 1 year. Mammo Location: [facility], [address] [place] [address] -------- FINAL REPORT -------- Dictated By: Eb Dunham Dictated Date: 09/20/2024 10:14 ET Assigned Physician: Eb Dunham Reviewed and Electronically Signed By: Eb Dunham Signed Date: 09/20/2024 10:18 ET Workstation ID: [id number] Transcribed By: Self Edit Transcribed Date: 09/20/2024 10:14 ET Narrative 09/20/2024 10:18 AM EDT CLINICAL: The patient is a 54 years Female presenting for routine screening mammography. COMPARISON: 08/09/2020 and 06/26/2017. TECHNIQUE: Full-field digital mammography of the breasts bilaterally consisting of tomosynthesis in MLO and CC projection is performed in the [employer] 2000-D unit. Computer aided detection utilizing the [...] MLO and CC projection is performed in theOptima Diagnosticsographe 2000-D unit. Computer aided detection utilizing the OrthoFiystem was utilized. FINDINGS: The breasts are again [...] for biopsy. PQRI CPT II 3342F Code 86688, 48448 PQRI 225 CPT II 7025F TISSUE DENSITY: There are scattered areas of fibroglandular density.(BI-RADS category B) IMPRESSION: Benign. BI-RADS CATEGORY: 2 - BENIGN RECOMMENDATION: Screening bilateral mammogram is recommended in 1 year. Mammo Location: [facility], [address] [place] [address] -------- FINAL REPORT -------- Dictated By: Eb Dunham Dictated Date: 09/20/2024 10:14 ET Assigned Physician: Eb Dunham Reviewed and Electronically Signed By: Eb Dunham Signed Date: 09/20/2024 10:18 ET Workstation ID: [id number] Transcribed By: Self Edit Transcribed Date: 09/20/2024 10:14 ET [facility] IMG BI PROCEDURES Final Resul t * HIV Screening (07/01/2016) HIV Screening abstracted Historical Provider HEALTH MAINTENANCE Final Result * Hepatitis C Screening (06/30/2016) Hepatitis C Screening abstracted Historical Provider HEALTH MAINTENANCE Final Result from Last 3 Months or Most Recently Relevant to Health Maintenance Insurance MEDICAID - [place] MEDICARE Care Teams J2Ee Software Engineer Relationship Specialty Start Date End Date Eb Brady MD [address] [place] [address] PCP - General Internal Medicine 06/30/24
== END 2025-01-27 10:38 | disposition home or self-care (01) ==
LOC: HO.HPSW 10:10
PROVIDERS: PCP Internal Medicine; Visit Provider Nurse Practitioner Family
DX: J45.909 Unspecified asthma, uncomplicated (principal); J30.9 Allergic rhinitis, unspecified
CPT/HCPCS: 99214

== ENCOUNTER → 2025-01-27 10:09 | Outpatient (BNVA) | payer MEDICARE, MEDICAID, SELFPAY | PROVIDERS: PCP Internal Medicine; Visit Provider Nurse Practitioner Family | DX: J45.909 Unspecified asthma, uncomplicated (principal); K21.9 Gastro-esophageal reflux disease without esophagitis; J30.9 Allergic rhinitis, unspecified; J34.89 Other specified disorders of nose and nasal sinuses; Z87.891 Personal history of nicotine dependence | CPT/HCPCS: 99212 ==